=== PATIENT | male | born 1945 | race Two or more races ===

== ENCOUNTER → 2022-11-05 | Emergency (ER) | payer OTHER ==
[~2022-11-05] VITALS: Ht 170.2 cm; Wt 78.5 kg
[~2022-11-05] MED LIST: CATAPRES0.3 MG PO; HYDRALAZINE HCL50 MG PO; LIPITOR40 M1 PO
== END | disposition left against medical advice (07) ==
LOC: ER 01:50
DX: R07.9 Chest pain, unspecified (principal); I10 Essential (primary) hypertension; E78.00 Pure hypercholesterolemia, unspecified